=== PATIENT | male | born 1995 | race Two or more races ===

== ENCOUNTER → 2016-06-18 | Outpatient (REF) | payer BC, OTHER | LOC: M LAB REF 12:40 | PROVIDERS: ATTEND Otolaryngology | DX: D23.22 Other benign neoplasm of skin of left ear and external auricular canal (principal) ==

== ENCOUNTER → 2018-01-28 | Outpatient (CLI) | payer OTHER | LOC: M LRY 10:04 | DX: S99.912A Unspecified injury of left ankle, initial encounter (principal); X58.XXXA Exposure to other specified factors, initial encounter; Y92.89 Other specified places as the place of occurrence of the external cause; Y93.9 Activity, unspecified; Y99.9 Unspecified external cause status ==

== ENCOUNTER → 2018-08-21 | Outpatient (REF) | payer OTHER | LOC: M SFHCLERA 13:18 | PROVIDERS: ATTEND Physician Assistant | DX: J02.9 Acute pharyngitis, unspecified (principal) ==

== ENCOUNTER → 2019-02-09 | Outpatient (CLI) | payer OTHER | LOC: M OUTALCOH 08:21 | PROVIDERS: ATTEND Psychiatry & Neurology Psychiatry | DX: F12.20 Cannabis dependence, uncomplicated (principal); F10.10 Alcohol abuse, uncomplicated ==

== ENCOUNTER → 2019-02-14 | Outpatient (CLI) | payer OTHER ==
--- NOTE | 2019-02-14 11:22 | REP ---
LEFT RIB SERIES: Four views left ribs performed. No fracture or bone lesion is seen. An accompanying view of the chest demonstrates no acute infiltrate or pneumothorax. No pleural effusion is seen. Heart is normal in size. IMPRESSION: No evidence of left rib fracture. Electronically Signed by Keith Martin MD 02/15/2019 05:51 P
== END ==
LOC: M LRY 09:47
PROVIDERS: ATTEND Physician Assistant
DX: R07.81 Pleurodynia (principal)

== ENCOUNTER 2019-02-16 13:23 | Outpatient (RCR) | payer OTHER | END 2019-02-23 | LOC: M OUTALCOH 13:23 | PROVIDERS: ATTEND Psychiatry & Neurology Psychiatry | DX: F10.10 Alcohol abuse, uncomplicated (principal); F12.20 Cannabis dependence, uncomplicated ==

== ENCOUNTER → 2019-05-04 | Outpatient (CLI) | payer OTHER | LOC: M OUTALCOH 08:06 | PROVIDERS: ATTEND Psychiatry & Neurology Psychiatry | DX: F10.10 Alcohol abuse, uncomplicated (principal); F12.10 Cannabis abuse, uncomplicated ==

== ENCOUNTER → 2019-05-26 | Outpatient (RCR) | payer OTHER | LOC: M OUTALCOH 05-14 08:39 | PROVIDERS: ATTEND Psychiatry & Neurology Psychiatry | DX: F10.10 Alcohol abuse, uncomplicated (principal); F12.10 Cannabis abuse, uncomplicated ==

== ENCOUNTER 2019-06-23 16:00 | Outpatient (RCR) | payer OTHER | END 2019-06-26 | LOC: M OUTALCOH 16:00 | PROVIDERS: ATTEND Psychiatry & Neurology Psychiatry | DX: F10.10 Alcohol abuse, uncomplicated (principal); F12.10 Cannabis abuse, uncomplicated ==

== ENCOUNTER 2019-07-14 08:00 | Outpatient (RCR) | payer OTHER, SELFPAY | END 2019-07-25 | LOC: M OUTALCOH 08:00 | PROVIDERS: ATTEND Psychiatry & Neurology Psychiatry | DX: F10.10 Alcohol abuse, uncomplicated (principal); F12.20 Cannabis dependence, uncomplicated ==